=== PATIENT | female | born 1940 | race Caucasian/White ===

== ENCOUNTER 2018-06-09 07:03 | Emergency (ER) | payer MEDICARE, OTHER ==
[~2018-06-09] VITALS: Ht 160 cm; Wt 71.0 kg
[~2018-06-09 07:03] MED LIST: ASPI-1265 PO; BETA1TAB20 PO; BIOT800T PO; CALC-642 PO; CHOL2000 PO; COU5T PO; EFF37.5XRC PO; FISH400C3 PO; GLAT20KI3 SQ; MAGN250T29 PO; RISE35TA PO; ROPI2TAB29 PO; SYN0.0125T PO; VITA200T6 PO; VITC500T PO; red rice PO
[2018-06-09 07:47] VITALS: BP 124/49
[2018-06-09] MEDS ORDERED: CEPH500C5 PO (08:33)
== END 2018-06-09 08:49 | disposition home or self-care (01) ==
LOC: ER 07:04
DX: L03.115 Cellulitis of right lower limb (principal); G35 Multiple sclerosis; Z86.718 Personal history of other venous thrombosis and embolism; Z79.82 Long term (current) use of aspirin; Z79.899 Other long term (current) drug therapy; Z79.01 Long term (current) use of anticoagulants
CPT/HCPCS: 93971; 99284

== ENCOUNTER 2018-11-10 07:52 | Day surgery (SDC) | payer MEDICARE, OTHER ==
[2018-11-09 15:48] LABS: BASOPHILS % (AUTO) 0.5 % (0-1); EOSINOPHILS # (AUTO) 0.2 X10'3 (0-0.9); HEMATOCRIT 37.9 % (35.0-45.0); HEMOGLOBIN 13.1 g/dl (12.0-16.0); LYMPHOCYTES # (AUTO) 1.7 X10'3 (1.1-4.8); LYMPHOCYTES % (AUTO) 23.2 % (21-51); MEAN CORPUSCULAR HEMOGLOBIN 30.3 PG (27.0-31.0); MEAN CORPUSCULAR HGB CONC 34.5 g/dL (33.0-36.5); MEAN CORPUSCULAR VOLUME 87.8 FL (78-98); MEAN PLATELET VOLUME 9.1 FL (7.4-10.4); MONOCYTES # (AUTO) 0.9 X10'3 (0-0.9); MONOCYTES % (AUTO) 11.6 % (2-12); NEUTROPHILS # (AUTO) 4.7 X10'3 (1.8-7.7); NEUTROPHILS % (AUTO) 61.7 % (42-75); PLATELET COUNT 199 X10'3 (140-440); RED BLOOD COUNT 4.32 X10'6 (4.20-5.60); RED CELL DISTRIBUTION WIDTH 15.1 % (11.5-14.5); WHITE BLOOD COUNT 7.6 X10'3 (4.5-11.0)
[2018-11-09 15:55] LABS: ALBUMIN 3.6 G/DL (3.4-5.0); ANION GAP 7 (8-16); BLOOD UREA NITROGEN 21 MG/DL (7-18); BUN/CREATININE RATIO 23.6 (6.6-38.0); CALCIUM 8.9 MG/DL (8.5-10.1); CHLORIDE 109 MMOL/L (99-107); CREATININE 0.89 MG/DL (0.40-0.90); GLUCOSE 101 MG/DL (70-104); POTASSIUM 4.1 MMOL/L (3.5-5.1); SODIUM 143 MMOL/L (135-145); TOTAL CARBON DIOXIDE 26.7 MMOL/L (24-32); eGFR 62 ML/MIN
[2018-11-09 15:59] LABS: INR 1.8 INR; PROTHROMBIN TIME 17.4 SECONDS (9.0-12.0)
[2018-11-10] VITALS (33 sets, daily range): BP systolic 72–144; BP diastolic 38–92
[~2018-11-10] VITALS: Ht 157.5 cm; Wt 78.9 kg
[~2018-11-10 07:52] MED LIST changes: +CEPH500C5 PO
[2018-11-10] MEDS ORDERED: MIDAZolam 5mg/ml 2ml vial IV ONE (08:20)
[2018-11-10] MEDS ORDERED: diphenhydrAMINE 25mg capsule PO ONE (08:20)
[2018-11-10] MEDS ORDERED: atropine 0.1mg/ml 10ml syringe IV ONE ×2 (08:20→12:15)
[2018-11-10] MEDS ORDERED: morphine 10mg/ml inj. IV ONE (08:20)
[2018-11-10] MEDS ORDERED: LORazepam 0.5 MG tablet PO ONE (08:20)
[2018-11-10] MEDS ORDERED: amiodarone in dextrose, iso-osm 150mg/100ml bag IV ONE (08:20)
[2018-11-10] MEDS ORDERED: normal saline 1000ml 1,000 ML IV SCH (08:20)
[2018-11-10] MEDS ORDERED: WARF5TAB9 PO (10:08)
[2018-11-10] MEDS ORDERED: PRAM0.5T3 PO (10:08)
[2018-11-10] MEDS ORDERED: ATOR10TA70 PO (10:08)
[2018-11-10] MEDS ORDERED: SOTA80TA PO (10:08)
[2018-11-10] MEDS ORDERED: BIOT5000 PO (10:08)
[2018-11-10] MEDS ORDERED: GLUC15006 PO (10:08)
[2018-11-10] MEDS ORDERED: DOPamine 400MG/D5W 250ML CRITICAL CARE IV SCH (11:35)
== END 2018-11-10 18:00 | disposition home or self-care (01) ==
LOC: SSTAY O 07:52
PROVIDERS: ATTEND Internal Medicine Cardiovascular Disease
DX: I48.0 Paroxysmal atrial fibrillation (principal); I25.10 Atherosclerotic heart disease of native coronary artery without angina pectoris; E78.5 Hyperlipidemia, unspecified; G25.81 Restless legs syndrome; G35 Multiple sclerosis; I47.1 Supraventricular tachycardia; Z79.899 Other long term (current) drug therapy; Z79.01 Long term (current) use of anticoagulants
CPT/HCPCS: 36415; 80048; 85025; 85610; 92960; 93005; J0282; J0461; J1265; J2250; J2270; J7030; Q0163

== ENCOUNTER 2021-12-24 07:44 | Day surgery (SDC) | payer MEDICARE, OTHER ==
[2021-12-20 11:43] LABS: BASOPHILS # (AUTO) 0.1 X10'3 (0-0.2); BASOPHILS % (AUTO) 0.6 % (0-1); EOSINOPHILS # (AUTO) 0.3 X10'3 (0-0.9); EOSINOPHILS % (AUTO) 3.9 % (0-6); LYMPHOCYTES % (AUTO) 12.1 % (21-51); MEAN CORPUSCULAR HEMOGLOBIN 27.8 PG (27.0-31.0); MEAN CORPUSCULAR HGB CONC 32.9 g/dL (33.0-36.5); MEAN CORPUSCULAR VOLUME 84.6 FL (78-98); MEAN PLATELET VOLUME 8.4 FL (7.4-10.4); MONOCYTES # (AUTO) 0.9 X10'3 (0-0.9); MONOCYTES % (AUTO) 10.7 % (2-12); NEUTROPHILS # (AUTO) 5.8 X10'3 (1.8-7.7); NEUTROPHILS % (AUTO) 72.7 % (42-75); PRE OP HEMATOCRIT 39.1 % (35.0-45.0); PRE OP HEMOGLOBIN 12.9 g/dL (12.0-16.0); PRE OP PLATELET COUNT 213 X10'3 (140-440); RED BLOOD COUNT 4.62 X10'6 (4.20-5.60); RED CELL DISTRIBUTION WIDTH 16.3 % (11.5-14.5)
[2021-12-20 11:49] LABS: PRE OP INR 1.1 INR; PRE OP PROTIME 11.1 SECONDS (9.0-12.0)
[2021-12-20 11:54] LABS: ALBUMIN 4.1 G/DL (3.4-5.0); ALBUMIN/GLOBULIN RATIO 1.2 (1.1-1.5); ALKALINE PHOSPHATASE 83 IU/L (46-116); BLOOD UREA NITROGEN 16 MG/DL (7-18); BUN/CREATININE RATIO 22.2 (6.6-38.0); CALCIUM 8.8 MG/DL (8.5-10.1); CHLORIDE 104 MMOL/L (99-107); CREATININE 0.72 MG/DL (0.40-0.90); PRE OP ALT 22 U/L (30-65); PRE OP ANION GAP 10 (8-16); PRE OP AST 19 U/L (10-37); PRE OP BILIRUB, TOTAL 1.1 MG/DL (0.0-1.0); PRE OP GLUCOSE 88 MG/DL (70-104); PRE OP POTASSIUM 3.9 MMOL/L (3.4-5.1); PRE OP SODIUM 140 MMOL/L (135-145); TOTAL CARBON DIOXIDE 26.3 MMOL/L (24-32); TOTAL PROTEIN 7.6 G/DL (6.4-8.2); eGFR 78 ML/MIN
[2021-12-24] VITALS (12 sets, daily range): BP systolic 117–130; BP diastolic 68–90
[~2021-12-24] VITALS: Ht 160 cm; Wt 73.4 kg
[~2021-12-24 07:44] MED LIST changes: +APIX5TAB3 PO; -ASPI-1265 PO; -BIOT800T PO; -CALC-642 PO; +CALC-723 PO; -CEPH500C5 PO; -CHOL2000 PO; +CHOL3000 PO; -COU5T PO; +DILT240C94 PO; -EFF37.5XRC PO; -FISH400C3 PO; +LIDOcaine 1% W/epiNEPHrine 1:100,000 20ml vial ONE; +MAGN250T11 PO; -MAGN250T29 PO; +MULT-1130 PO; +PRAM0.5T3 PO; -RISE35TA PO; -ROPI2TAB29 PO; -SYN0.0125T PO; +SYN0.088T PO; +TUMERIC PO; +UBID100C16 PO; -VITA200T6 PO; +[UNRECOGNIZED DRUG - OTHER] PO; +cocaine 4% topical solution 4ml bottle ONE; +diazepam 5mg tablet PO ONE; +famotidine 20mg tablet PO ONE; +mupirocin 2% ointment 22GM ONE; +oxymetazoline 15 ML nasal spray NS ONE; -red rice PO; +ringers solution, lacted 1,000 ML IV SCH
[2021-12-24] MEDS ORDERED: ringers solution, lacted 1,000 ML IV SCH (10:15)
[2021-12-24] MEDS ORDERED: meperidine/PF 25mg/ml syringe IV PRN ×3 (10:15)
[2021-12-24] MEDS ORDERED: proCHLORperazine 10 MG/2 ml inj IV PRN (10:15)
[2021-12-24] MEDS ORDERED: morphine 4 MG/ML inj SYRINge IV PRN (10:15)
[2021-12-24] MEDS ORDERED: morphine 2 MG/ML inj. syringe IV PRN (10:15)
[2021-12-24] MEDS ORDERED: ondansetron/PF 4mg/2ml inj IV PRN (10:15)
[2021-12-24] MEDS ORDERED: fentaNYL/PF 50MCG/1 ML 2ML syringe ONE (10:16)
[2021-12-24] MEDS ORDERED: midazolam 1 mg/ML 2ml injection ONE (10:17)
[2021-12-24] MEDS ORDERED: propofol inj 20 ML IV ONE (10:20)
[2021-12-24] MEDS ORDERED: sevoflurane 250ml liquid IH ONE (10:24)
[2021-12-24] MEDS ORDERED: ePHEDrine 50MG/ML INJ. ONE (10:52)
[2021-12-24] MEDS ORDERED: dexamethasone sod phosphate 4mg/ml inj. ONE (10:52)
[2021-12-24] MEDS ORDERED: ondansetron/PF 4mg/2ml inj ONE (11:34)
--- NOTE | 2021-12-24 12:23 | NUR ---
Received from OR via [facility] , accompanied by Anesthesiologist DR ABDUL and report given by Anesthesiolgist. PT PRESNTS WITH 20G RIGHT WRIST, NASAL PACKING CDI, VSS. Addendum: 12/24/21 at 1235 by Haylee Conte RN, RN Amended: Links added.
[2021-12-24] MEDS ORDERED: salt irrigation nasal spray 45 ML SPRAY NS PRN (12:35)
[2021-12-24] MEDS ORDERED: HYDROcodone/acetaminophen 5mg/325mg tablet PO ONE (12:40)
--- NOTE | 2021-12-24 14:13 | NUR ---
ALL DISCHARGE CRITERIA HAS BEEN MET. VSS, PAIN AT A TOLERABLE LEVEL, VOIDING AND ABLE TO SAFELY AMBULATE AND TRANSFER SELF. IV TAKEN OUT WITHOUT COMPLICATIONS. ALL DISCHARGE INSTRUCTIONS COVERED WITH PATIENT AND ALL QUESTIONS ANSWERED, COPY GIVEN TO PATIENT. PATIENT TAKEN OUT VIA WHEELCHAIR TO PERSONAL VEHICLE WHERE FAMILY/FRIEND DROVE PATIENT HOME. Addendum: 12/24/21 at 1430 by Haylee Conte RN, RN Amended: Links added.
== END 2021-12-24 14:13 | disposition home or self-care (01) ==
LOC: PAS 07:44
PROVIDERS: ATTEND Otolaryngology
DX: J34.2 Deviated nasal septum (principal); J34.3 Hypertrophy of nasal turbinates; J32.8 Other chronic sinusitis; J34.89 Other specified disorders of nose and nasal sinuses; J33.8 Other polyp of sinus; G25.81 Restless legs syndrome; G35 Multiple sclerosis; I25.10 Atherosclerotic heart disease of native coronary artery without angina pectoris; I48.91 Unspecified atrial fibrillation; I10 Essential (primary) hypertension; Z95.0 Presence of cardiac pacemaker; Z79.01 Long term (current) use of anticoagulants; Z79.899 Other long term (current) drug therapy; Z20.822 Contact with and (suspected) exposure to COVID-19
CPT/HCPCS: 30140; 30520; 31240; 31253; 31267; 36415; 61782; 80053; 82948; 85025; 85576; 85610; 85730; 87635; 93005; A6402; C9250; C9803; J1100; J2250; J2405; J2704; J3010; J3490; J7030; J7040; J7120; Z7506; Z7508; Z7512; A4618; A7000

== ENCOUNTER 2025-02-05 18:24 | Emergency (ER) | payer MEDICARE, OTHER ==
[~2025-02-05] VITALS: Ht 162.6 cm; Wt 55.0 kg
[~2025-02-05 18:24] MED LIST changes: +AMIO200T67 OGT; -BETA1TAB20 PO; -DILT240C94 PO; +LAN0.125T PO; +LEVO125T PO; -LIDOcaine 1% W/epiNEPHrine 1:100,000 20ml vial ONE; +MULT-1085 PO; -SYN0.088T PO; -TUMERIC PO; -VITC500T PO; -[UNRECOGNIZED DRUG - OTHER] PO; -cocaine 4% topical solution 4ml bottle ONE; -diazepam 5mg tablet PO ONE; -famotidine 20mg tablet PO ONE; -mupirocin 2% ointment 22GM ONE; -oxymetazoline 15 ML nasal spray NS ONE; -ringers solution, lacted 1,000 ML IV SCH
--- NOTE | 2025-02-05 19:10 | Physician Documentation ---
History of Present Illness ~ Chief Complaint: Laceration Stated Complaint: LAC RT LEG Time Seen by MD: 18:55 Primary Medical Doctor: Dio Carpio Ragsdale Source: patient Mode of Arrival: POV Exam Limitations: no limitations HPI 84-year-old female on Eliquis was out with a cloth bag picking vegetables in the garden and she does not know if it was the bag or a branch from 1 of the tomatoes but it sliced her right leg. Patient was bleeding due to the blood thinners and came in to evaluate for any repair. Tetanus Within 5 Years: No Medication Reconciliation Allergies: Coded Allergies: No Known Allergies (Unverified , 03/25/22) Scheduled Amiodarone HCl (Amiodarone HCl), 400 MG OGT BID Apixaban (Eliquis), 1 TAB PO Q12H, (Reported) Calcium Carbonate/Vitamin D3 (Calcium 500 + D3 Tablet), 1 TAB PO DAILY, (Reported) Cholecalciferol (Vitamin D3) (Vitamin D3), 1 TAB PO DAILY, (Reported) Digoxin (Digitek), 125 MCG PO DAILY Glatiramer Acetate (Copaxone), 20 MG SQ DAILY, (Reported) Levothyroxine Sodium (Synthroid), 1 TAB PO DAILY, (Reported) Magnesium Oxide (Magnesium), 1 TAB PO DAILY, (Reported) Multivitamin (Multi Vitamin Daily), 1 TAB PO DAILY, (Reported) Multivits-Min/Folic Acid/Biot (Hair, Skin & Nails Caplet), 1 TAB PO DAILY, (Reported) Pramipexole Di-Hcl (Mirapex), 2 TAB PO DAILY, (Reported) Ubidecarenone (Coq-10), 100 MG PO DAILY, (Reported) Past Medical History Past Medical History: Multiple Sclerosis, Valve Insuffciency, Vascular Disease, Thyroid (unspecified), Deep Vein Thrombosis Past Surgical History: pacemaker Patient History: Brain stem cancer Alcohol Use: Rarely Drug Use: none Lives In: Home Occupation: retired Review of Systems All Other Systems at this time: Reviewed and Negative Integumentary: Reports: see HPI Physical Exam Vital Signs: RN Vital Signs have been reviewed: Yes, Temperature: 98.2, Source: Temporal, Heart Rate: 59, Respiratory Rate: 18, BP: 98/54, Pulse Oximetry: 98, Weight: 55.000 Oxygen Flow Rate: 0 Physical Exam General: Alert, no apparent distress. Respiratory: Lungs clear, no respiratory distress. Chest: No accessory muscle use. Cardiovascular: Appears well perfused Extremities: Normal range of motion, no deformity. Small 2-1/2 cm irregularly- shaped superficial laceration to the right lower extremity bleeding controlled. Neurologic: Oriented x4. Psychiatric: Normal mood and affect. Skin: Normal color, warm and dry. No edema, no ecchymosis. See extremities note Progress Results/Orders Results/Orders Vital Signs 02/05/25 18:27 Temp 98.2 Pulse 59 Resp 18 B/P (MAP) 98/54 Pulse Ox 98 O2 Flow Rate 0 Medical Decision Making Findings Small avulsion/skin tear to the right lower extremity. Cleaned and dressed discussed excessive bleeding due to Eliquis. Patient will follow up as needed Departure Time of Disposition: 19:14 Disposition: 01 HOME / SELF CARE / HOMELESS Impression: Primary Impression: Laceration Condition: Stable Discharge Instructions: Laceration Care, Adult, [id number] Additional Instructions: Change dressing carefully as to avoid reopening wound causing excessive bleeding. Follow up with primary care monitor for any new or worsening symptoms feel free to return to the ER. Referrals: NO PRIMARY CARE PROVIDER (PCP) Education Educated: Patient Educated regarding: diagnosis, treatment, need for follow up Signature Scribe Signature: No scribe Attestation: The note accurately reflects work and decisions made by me.Haylee Daniels - PITCH FLAKER 02/05/25 19:15 HAYLEE DANIELS NP Feb 05, 2025 19:10
[2025-02-05 19:28] VITALS: BP 100/55; PULSE 58; RESP 18; TEMP 98.6; O2SAT 97
== END 2025-02-05 19:39 | disposition home or self-care (01) ==
LOC: ER 18:25
DX: S81.811A Laceration without foreign body, right lower leg, initial encounter (principal); Z95.0 Presence of cardiac pacemaker; Z86.718 Personal history of other venous thrombosis and embolism; Z79.899 Other long term (current) drug therapy; X58.XXXA Exposure to other specified factors, initial encounter; Y93.89 Activity, other specified; Y92.89 Other specified places as the place of occurrence of the external cause; Y99.8 Other external cause status
CPT/HCPCS: 99282